=== PATIENT | male | born 1985 | race Asian ===

== ENCOUNTER 2022-05-07 07:44 | Emergency (ER) | payer BC ==
[2022-05-07] MEDS ORDERED: ONDANSETRON 4 MG/2 ML VIAL ONE (08:00)
[2022-05-07] MEDS ORDERED: MORPHINE 4 MG/ML SYR ONE ×2 (08:00→09:25)
--- NOTE | 2022-05-07 08:35 | RAD REPORT ---
EXAM DESCRIPTION: RAD - Foot Left 3 View - 05/07/2022 8:27 am CLINICAL HISTORY: puncture, possible stingray, eval for foreign body COMPARISON: No comparisons FINDINGS/IMPRESSION: No acute fracture. No malalignment. No significant focal degenerative changes. No radiopaque foreign body.
--- NOTE | 2022-05-07 09:10 | ER ---
Nurse's Notes [facility] Name: Pranay Alberto Age: 36 yrs Sex: Male : 1985 Arrival Date: 05/07/2022 Time: 07:45 Bed 7 Private MD: Diagnosis: Toxic effect of contact with stingray, accidental (unintentional), initial encounter;Puncture wound without foreign body, left foot Presentation: 05/07 07:45 Chief complaint: Patient states: [place] believes ph he was stung by a stingray to top of L foot. wound to top of foot noted, minimal bleeding. Coronavirus screen: Vaccine status: Patient reports receiving the 2nd dose of the covid vaccine. Ebola Screen: No symptoms or risks identified at this time. Initial Sepsis Screen: Does the patient meet any 2 criteria? No. Patient's initial sepsis screen is negative. Does the patient have a suspected source of infection? No. Patient's initial sepsis screen is negative. Risk Assessment: Do you want to hurt yourself or someone else? Patient reports no desire to harm self or others. Onset of symptoms was May 07, 2022. 07:45 Method Of Arrival: Wheelchair ph 07:45 Acuity: CHRISTOFER 3 ph Triage Assessment: 07:47 General: Appears in no apparent distress. uncomfortable, well groomed, Behavior is ph calm, cooperative, appropriate for age. Pain: Complains of pain in dorsum of left foot. Neuro: Mendoza Agitation-Sedation Scale (RASS): 0 - Alert and Calm Level of Consciousness is awake, alert, obeys commands, Oriented to person, place, time, situation. Cardiovascular: Capillary refill < 3 seconds in bilateral fingers Patient's skin is warm and dry. Respiratory: No deficits noted. Derm: Skin is healthy with good turgor, Skin is pink, warm \T\ dry. Musculoskeletal: Circulation, motion, and sensation intact. Range of motion: intact in all extremities. Injury Description: open wound noted to dorsum of L foot. Historical: - Allergies: 07:47 No Known Allergies; ph - Home Meds: 07:47 None [Active]; ph - PMHx: 07:47 None; ph - Immunization history:: Adult Immunizations unknown. - Social history:: Smoking status: Patient denies any tobacco usage or history of. - Family history:: not pertinent. - Hospitalizations: : No recent hospitalization is reported. Screenin:48 Abuse screen: Denies threats or abuse. Denies injuries from another. Nutritional ph screening: No deficits noted. Tuberculosis screening: No symptoms or risk factors identified. Fall Risk None identified. Assessment: 07:49 Reassessment: Pt's L foot placed in basin of hot water, pt tolerating well. General: ph SEE TRIAGE ASSESSMENT. Vital Signs: 07:45 BP 152 / 124; Pulse 91; Resp 18; Temp 99.1; Pulse Ox 100% on R/A; Weight 81.65 kg; ph Height 5 ft. 6 in. (167.64 cm); 07:54 BP 111 / 87; Pulse 86; Resp 18; Pulse Ox 98% on R/A; ph 09:51 BP 101 / 54; Pulse 69; Resp 17; Pulse Ox 100% ; Pain 4/10; jh6 07:45 Body Mass Index 29.05 (81.65 kg, 167.64 cm) ph ED Course: 07:45 Patient arrived in ED. ss 07:45 Giles Cui MD is Attending Physician. rn 07:47 Triage completed. ph 07:47 Arm band placed on Patient placed in an exam room, on a stretcher. ph 07:49 Lucinda Nicolas, RN is Primary Nurse. ph 07:49 Patient has correct armband on for positive identification. Bed in low position. Call ph light in reach. Side rails up X 1. Pulse ox on. NIBP on. 07:50 Inserted saline lock: 20 gauge in right antecubital area, using aseptic technique. ph 08:29 XRAY Foot LEFT 3 View In Process Unspecified. EDMS 09:50 Assist provider with laceration repair on dorsum of left foot that was 2.5 cm. or less jh6 using Steri-strips. Performed by Lucinda Nicolas RN Dressed with 4X4s, Terri, Patient tolerated well. 09:51 Patient did not have IV access during this emergency room visit. jh6 Administered Medications: 07:52 Drug: Zofran (Ondansetron) 4 mg Route: IVP; Site: right antecubital; ph 08:15 Follow up: Response: No adverse reaction ph 07:55 Drug: morphine 4 mg Route: IVP; Infused Over: 4 mins; Site: right antecubital; ph 08:15 Follow up: Response: No adverse reaction ph 09:22 Drug: morphine 4 mg Route: IVP; Infused Over: 4 mins; Site: right antecubital; ph 09:45 Follow up: Response: No adverse reaction ph Medication: 09:51 VIS not applicable for this client. jh6 Outcome: 09:09 Discharge ordered by . rn 09:51 Discharged to home ambulatory. [facility] 09:51 Condition: improved 09:51 Discharge instructions given to patient, family, Instructed on discharge instructions, Demonstrated understanding of instructions, follow-up care, medications. 09:52 Patient left the ED. jh6 Signatures: Dispatcher [employer] EDMS Giles Cui MD MD rn Smirch, Shelby, RN RN ss Hall, Patricia, RN RN ph Hastedt, Jennifer, RN RN [facility]
--- NOTE | 2022-05-07 09:10 | EDPHYS ---
Physician Documentation [facility] Name: Pranay Alberto Age: 36 yrs Sex: Male : 1985 Arrival Date: 05/07/2022 Time: 07:45 Bed 7 Private MD: ED Physician Giles Cui HPI: 05/07 08:14 This 36 yrs old Male presents to ER via Wheelchair with complaints of stingray injury. rn 08:14 The patient presents with a puncture wound, stingray. The complaints affect the left rn foot. Context: The problem was sustained beach, Mechanism of Injury: puncture the patient is able to ambulate. Onset: The symptoms/episode began/occurred just prior to arrival. Modifying factors: The symptoms are alleviated by nothing, the symptoms are aggravated by nothing. Associated signs and symptoms: Pertinent negatives: fever, numbness, weakness. Severity of symptoms: At their worst the symptoms were moderate, in the emergency department the symptoms are unchanged. The patient has not experienced similar symptoms in the past. The patient has not recently seen a physician. Historical: - Allergies: 07:47 No Known Allergies; ph - Home Meds: 07:47 None [Active]; ph - PMHx: 07:47 None; ph - Immunization history:: Adult Immunizations unknown. - Social history:: Smoking status: Patient denies any tobacco usage or history of. - Family history:: not pertinent. - Hospitalizations: : No recent hospitalization is reported. ROS: 08:14 Constitutional: Negative for fever, chills, and weight loss, Cardiovascular: Negative rn for chest pain, palpitations, and edema, Respiratory: Negative for shortness of breath, cough, wheezing, and pleuritic chest pain, MS/Extremity: + puncture wound to left foot Skin: + puncture wound to left foot Exam: 08:14 Constitutional: This is a well developed, well nourished patient who is awake, alert, rn appears uncomfortable Cardiovascular: Regular rate and rhythm. No pulse deficits. MS/ Extremity: Pulses equal, no cyanosis. Neurovascular intact. Full, normal range of motion. + 2cm puncture wound to dorsum of left foot, no active bleeding, no obvious foreign body noted. Vital Signs: 07:45 BP 152 / 124; Pulse 91; Resp 18; Temp 99.1; Pulse Ox 100% on R/A; Weight 81.65 kg; ph Height 5 ft. 6 in. (167.64 cm); 07:54 BP 111 / 87; Pulse 86; Resp 18; Pulse Ox 98% on R/A; ph 09:51 BP 101 / 54; Pulse 69; Resp 17; Pulse Ox 100% ; Pain 4/10; jh6 07:45 Body Mass Index 29.05 (81.65 kg, 167.64 cm) ph MDM: 07:45 Patient medically screened. rn 09:08 Differential diagnosis: foreign body, penetrating trauma, stingray envenomation. Data rn reviewed: vital signs, nurses notes, radiologic studies, plain films, and as a result, I will discharge patient. Counseling: I had a detailed discussion with the patient and/or guardian regarding: the historical points, exam findings, and any diagnostic results supporting the discharge/admit diagnosis, radiology results, the need for outpatient follow up, to return to the emergency department if symptoms worsen or persist or if there are any questions or concerns that arise at home. Response to treatment: the patient's symptoms have markedly improved after treatment, and as a result, I will discharge patient. Special discussion: I discussed with the patient/guardian in detail that at this point there is no indication for admission to the hospital. It is understood, however, that if the symptoms persist or worsen the patient needs to return immediately for re-evaluation. ED course: Pt feels better, reports atleast a 50% reduction in pain. Xray without foreign body. Will dc home with pain meds and abx. . 05/07 07:46 Order name: XRAY Foot LEFT 3 View; Complete Time: 08:46 rn 05/07 07:46 Order name: IV Start; Complete Time: 07:55 rn 05/07 07:46 Order name: Wound Care; Complete Time: 07:55 rn Administered Medications: 07:52 Drug: Zofran (Ondansetron) 4 mg Route: IVP; Site: right antecubital; ph 08:15 Follow up: Response: No adverse reaction ph 07:55 Drug: morphine 4 mg Route: IVP; Infused Over: 4 mins; Site: right antecubital; ph 08:15 Follow up: Response: No adverse reaction ph 09:22 Drug: morphine 4 mg Route: IVP; Infused Over: 4 mins; Site: right antecubital; ph 09:45 Follow up: Response: No adverse reaction ph Disposition Summary: 05/07/22 09:09 Discharge Ordered Location: Home rn Problem: new rn Symptoms: have improved rn Condition: Stable rn Diagnosis - Toxic effect of contact with stingray, accidental (unintentional), initial encounterrn - Puncture wound without foreign body, left foot rn Followup: rn - With: Private Physician - When: As needed - Reason: Recheck today's complaints, Re-evaluation by your physician Discharge Instructions: - Discharge Summary Sheet rn - Puncture Wound rn Forms: - Medication Reconciliation Form rn - Thank You Letter rn - Antibiotic information technology intern - Prescription Opioid Use rn - Work release form eb Prescriptions: - Doxycycline Monohydrate 100 mg Oral Tablet - take 1 tablet by ORAL route every 12 hours for 10 days; 20 tablet; Refills: 0, rn Product Selection Permitted Signatures: Dispatcher [employer] Giles Beard MD MD rn [place] RN RN ph
[2022-05-07 10:11] VITALS: TEMP 99.1
[2022-05-07 10:31] VITALS: BP 101/54; O2SAT 100
== END 2022-05-07 09:52 | disposition home or self-care (01) ==
LOC: ER 07:44
DX: S91.332A Puncture wound without foreign body, left foot, initial encounter (principal); W56.39XA Other contact with other marine mammals, initial encounter
CPT/HCPCS: 73630; J2405; 96374; 96375; 99284